=== PATIENT | female | born 1990 | race American Indian/Alaskan Native ===

== ENCOUNTER 2018-11-27 10:27 | Inpatient (IN) | payer BC, OTHER ==
[2018-11-27] MEDS ORDERED: BRETHINE IVP PRN (11:08)
[2018-11-27] MEDS ORDERED: SUBLIMAZE IV PRN (11:08)
[2018-11-27] MEDS ORDERED: ZOFRAN IV PRN (11:08)
[2018-11-27] MEDS ORDERED: MINERAL OIL PO PRN (11:08)
[2018-11-27] MEDS ORDERED: BRETHINE SUB-Q PRN (11:08)
--- NOTE | 2018-11-27 11:14 | History and Physical Report ---
History of Present Illness Date of examination: 11/27/18 Chief complaint: regular painful ctx - now 3-4cms (was 1cm in office this week) History of present illness: EDC Calculations LMP: 12/06/2018 Past History : 5 Term Births: 2 Premature Births: 0 Living Children: 2 Para: 2 Mult. Births: 0 Prev : 0 Aborta: 2 Elect. Ab: 0 Spont. Ab: 2 Ectopics: 0 # 1 Delivery date: 2013 Weeks Gestation: 11 Delivery type: SAB Comments: No D&C # 2 Delivery date: 2014 Weeks Gestation: 9 Delivery type: SAB Comments: No D&C # 3 Delivery date: 09/25/2015 Weeks Gestation: 40 labor: no Delivery type: Hours of labor: 24 Anesthesia type: epidural Delivery location: [place] Sex: Female weight: 7-12 Name: Virgie Camejo # 4 Delivery date: 05/16/2017 Weeks Gestation: 39 labor: no Delivery type: Hours of labor: 24 Anesthesia type: epidural Delivery location: [place] Sex: Female weight: 7-11 Name: Magalie Past Medical History: Negative Past Medical History Past Surgical History: Negative Past Surgical History Family History Summary: Other family member - Has No Family History of Ovarvian Cancer - Entered On: 07/08/2018 Other family member - Has No Family History of Colon Cancer - Entered On: 07/08/2018 Other family member - Has Family History of Skin Cancer - Entered On: 07/08/2018 Other family member - Has Family History of Diabetes - Entered On: 07/08/2018 Other family member - Has Family History of CVA or Stroke - Entered On: 07/08/2018 Other family member - Has Family History of Brain Cancer - Entered On: 07/08/2018 Other family member - Has Family History Coronary Heart Disease male < 55 - Entered On: 07/08/2018 Social History: Marital Status: Maried Children:2 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 of genital herpes: no Genetic History Congenital Heart Defect: Mom: no Dad: no Samantha Disease: Mom: no Dad: no Thalassemia Mom: no Dad: no Neural Tube Defect Mom: no Dad: no Down's Syndrome Mom: no Dad: yes Comments: Aunt Annie Mom: no Dad: no Sickle Cell Disease/Trait Mom: no Dad: no Hemophilia Mom: no Dad: no Muscular Dystrophy Mom: no Dad: no Cystic Fibrosis Mom: no Dad: no Arpin Chorea Mom: no Dad: no Mental Retardation Mom: no Dad: no Fragile X Mom: no Dad: no Other Genetic/Chromosomal Disorder Mom: no Dad: no Child w/other defect Mom: no Dad: no Enviromental Exposures Xray Exposure: no Medication, drug, or alcohol use since LMP: no Chemical/Other Exposure: no Current Allergies (reviewed today): * SULFA DRUGS (Critical) Past History Past Medical History: other (see HPI) Past Surgical History: other (see HPI) 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 History: other (see HPI) Family/Genetic History: other (see HPI) - Obstetrical History Expected Date of Delivery: 12/06/18 Actual Gestation: 38 Week(s) 5 Day(s) : 5 Para: 2 Hx # Term Pregnancies: 2 Number of Pregnancies: 0 Spontaneous Abortions: 2 Induced : 0 Number of Living Children: 2 Medications and Allergies Allergies Allergy/AdvReac Type Severity Reaction Status Date / Time Sulfa (Sulfonamide Allergy Hives Verified 11/27/18 10:51 Antibiotics) Review of Systems All systems: negative - Vital Signs Vital signs: Vital Signs Temp Resp 97.9 F 11/27/18 10:52 11/27/18 10:52 Temp Pulse Resp BP Pulse Ox 97.9 F 11/27/18 10:52 11/27/18 10:52 - Physical Exam Breasts: Positive: normal Cardiovascular: Regular rate Lungs: Positive: Clear to auscultation, Normal air movement Abdomen: Positive: normal appearance, soft Genitourinary (Female): Positive: normal external genitalia, normal perenium Vulva: both: normal Vagina: Positive: normal moisture Uterus: Positive: normal size, normal contour - Obstetrical FHR: category 1 Uterine Contraction Monitor Mode: External Cervical Dilatation: 3.5 Uterine Contraction Pattern: Regular Uterine Tone Measurement Phase: Contraction Uterine Contraction Intensity: Moderate Results Result Diagrams: 11/27/18 11:25 All other labs normal. Assessment and Plan 28y/o @ 38+5 weeks arrived in active labor. GBS +. Admission orders in EMR. Anticipate . - Patient Problems (1) Active labor at term Current Visit: Yes Status: Acute (2) 38 weeks gestation of Current Visit: Yes Status: Acute (3) GBS (group B Streptococcus carrier), +RV culture, currently Current Visit: Yes Status: Acute
[2018-11-27] MEDS: LACTATED RINGERS 1,000 ML IV SCH ×2 (12:00→13:43)
[2018-11-27] MEDS ORDERED: PITOCin/NS 30 UNIT/500ML 30 UNITS/500 ML BAG IV SCH (12:00)
[2018-11-27] MEDS ORDERED: PITOCin/NS 20 UNIT/1000ML DRIP 20 UNITS/1,000 ML BAG IV SCH ×2 (12:00→19:55)
[2018-11-27 12:01] LABS: Hematocrit 38.3 % (30.3-42.9); Hemoglobin 12.8 gm/dl (10.1-14.3); Mean Corpuscular HGB Conc 34 % (30-34); Mean Corpuscular Volume 89 fl (79-97); Platelet Count 160 K/mm3 (140-440); Red Cell Distribution Width 14.5 % (13.2-15.2)
[2018-11-27] MEDS ORDERED: XYLOCAINE 2% INFILTRATI ONE (12:08)
[2018-11-27] MEDS ORDERED: AMPICILLIN/NS 2 GM/100 ML 2 GM/100 ML BAG IV ONE (12:08)
--- NOTE | 2018-11-27 13:36 | Progress Note ---
Assessment and Plan Patient comfortable with epidural. SVE 6.5/90/-1, BBOW. AROM - clear fluid. Pelvis appears to be adequate for size. Anticipate . - Patient Problems (1) Active labor at term Current Visit: Yes Status: Acute (2) 38 weeks gestation of Current Visit: Yes Status: Acute (3) GBS (group B Streptococcus carrier), +RV culture, currently Current Visit: Yes Status: Acute Subjective - Subjective Date of service: 11/27/18 Principal diagnosis: IUP @ 38+5, active labor Interval history: EDC Calculations LMP: 12/06/2018 Past History : 5 Term Births: 2 Premature Births: 0 Living Children: 2 Para: 2 Mult. Births: 0 Prev : 0 Aborta: 2 Elect. Ab: 0 Spont. Ab: 2 Ectopics: 0 # 1 Delivery date: 2013 Weeks Gestation: 11 Delivery type: SAB Comments: No D&C # 2 Delivery date: 2014 Weeks Gestation: 9 Delivery type: SAB Comments: No D&C # 3 Delivery date: 09/25/2015 Weeks Gestation: 40 labor: no Delivery type: Hours of labor: 24 Anesthesia type: epidural Delivery location: [place] Sex: Female weight: 7-12 Name: Virgie Camejo # 4 Delivery date: 05/16/2017 Weeks Gestation: 39 labor: no Delivery type: Hours of labor: 24 Anesthesia type: epidural Delivery location: [place] Infant Sex: Female weight: 7-11 Name: Magalie Past Medical History: Negative Past Medical History Past Surgical History: Negative Past Surgical History Family History Summary: Other family member - Has No Family History of Ovarvian Cancer - Entered On: 07/08/2018 Other family member - Has No Family History of Colon Cancer - Entered On: 07/08/2018 Other family member - Has Family History of Skin Cancer - Entered On: 07/08/2018 Other family member - Has Family History of Diabetes - Entered On: 07/08/2018 Other family member - Has Family History of CVA or Stroke - Entered On: 07/08/2018 Other family member - Has Family History of Brain Cancer - Entered On: 07/08/2018 Other family member - Has Family History Coronary Heart Disease male < 55 - Entered On: 07/08/2018 Social History: Marital Status: Maried Children:2 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 of genital herpes: no Genetic History Congenital Heart Defect: Mom: no Dad: no Samantha Disease: Mom: no Dad: no Thalassemia Mom: no Dad: no Neural Tube Defect Mom: no Dad: no Down's Syndrome Mom: no Dad: yes Comments: Aunt Raffi-Sackimber Mom: no Dad: no Sickle Cell Disease/Trait Mom: no Dad: no Hemophilia Mom: no Dad: no Muscular Dystrophy Mom: no Dad: no Cystic Fibrosis Mom: no Dad: no Juvenal Chorea Mom: no Dad: no Mental Retardation Mom: no Dad: no Fragile X Mom: no Dad: no Other Genetic/Chromosomal Disorder Mom: no Dad: no Child w/other defect Mom: no Dad: no Enviromental Exposures Xray Exposure: no Medication, drug, or alcohol use since LMP: no Chemical/Other Exposure: no Current Allergies (reviewed today): * SULFA DRUGS (Critical) Patient reports: no new complaints (comfortable with epidural) Objective - Vital Signs Vital Signs: Vital Signs - 12hr 11/27/18 11/27/18 11/27/18 10:52 12:10 13:06 Temperature 97.9 F Pulse Rate 102 H 111 H Respiratory 16 Rate Blood Pressure 115/74 O2 Sat by Pulse 96 Oximetry 11/27/18 11/27/18 11/27/18 13:08 13:13 13:14 Temperature Pulse Rate 114 H 115 H 109 H Respiratory Rate Blood Pressure 122/70 O2 Sat by Pulse 92 94 Oximetry 11/27/18 11/27/18 11/27/18 13:21 13:23 13:29 Temperature Pulse Rate 114 H 112 H 97 H Respiratory Rate Blood Pressure 115/68 O2 Sat by Pulse 92 92 Oximetry 11/27/18 11/27/18 13:30 13:32 Temperature Pulse Rate 115 H 102 H Respiratory Rate Blood Pressure 108/72 109/70 O2 Sat by Pulse Oximetry - Exam Breasts: normal Cardiovascular: Regular rate Lungs: Clear to auscultation Abdomen: Present: normal appearance Vulva: both: normal Uterus: Present: normal FHR: category 1 Uterine Contraction Monitor Mode: External Cervical Dilatation: 6.5 (AROM - clear fluid) Cervical Effacement Percentage: 90 station: -1 Uterine Contraction Frequency (min): 3-4 Uterine Contraction Duration: 60 Uterine Contraction Pattern: Regular Uterine Tone Measurement Phase: Contraction Uterine Contraction Intensity: Strong/Firm Extremities: normal - Labs Labs: Laboratory Results - last 24 hr 11/27/18 11/27/18 11:25 11:25 WBC 9.8 RBC 4.30 Hgb 12.8 Hct 38.3 MCV 89 MCH 30 MCHC 34 RDW 14.5 Plt Count 160 Blood Type O POSITIVE Antibody Screen Negative
[2018-11-27] MEDS ORDERED: NARCAN 2 MG/2 ML IV PRN (14:57)
[2018-11-27] MEDS ORDERED: fentaNYL-BUPIV 2 MCG/ML-0.125% 200 MCG/100 ML BAG EPIDURAL SCH (15:00)
[2018-11-27] MEDS ORDERED: AMPICILLIN/NS 1 GM/50 ML 1 GM/50 ML BAG IV SCH (15:10)
[2018-11-27] MEDS ORDERED: XYLOCAINE MPF 2% ONE (15:11)
--- NOTE | 2018-11-27 17:05 | Procedure Note ---
OB Delivery Note - Delivery Date of Delivery: 11/27/18 ( female) Financial Recruiter: LILIA BORDEN Estimated blood loss: other (350) - Vaginal Delivery presentation: vertex Delivery position: OA Intrapartum events: none Delivery induction: none Delivery augmentation: rupture of membranes, pitocin Delivery monitor: external FHT, external uterine Route of delivery: Delivery placenta: spontaneous Delivery cord: 3 umbilical vessels Episiotomy: none Delivery laceration: 1st degree (hemostatic - not repaired) Anesthesia: epidural Delivery comments: female del GLENN over intact perineum, infant placed skin to skin on mother's abdomen. 3 vessel cord clamped and cut by FOC. cord blood collected. Placenta del intact and complete. Pit to IVF. Slight 1st degree lac noted hemostaic - not repaired (pt aware and agrees.) EBL 350, apgars 8/9, wt 7#12oz. Mother and infant remain LDR stable. - A at 1 minute: 8 at 5 minutes: 9 Infant Gender: Female (7#12oz)
[2018-11-27] MEDS ORDERED: LANSINOH TP PRN (19:55)
[2018-11-27] MEDS ORDERED: SODIUM CHLORIDE FLUSH SYRINGE 10 ML IV NR (19:55)
[2018-11-27] MEDS ORDERED: DERMOPLAST TP PRN (19:55)
[2018-11-27] MEDS ORDERED: DULCOLAX PR PRN (19:55)
[2018-11-27] MEDS ORDERED: TYLENOL PO PRN (19:55)
[2018-11-27] MEDS ORDERED: MILK OF MAGNESIA PO PRN (19:55)
[2018-11-27] MEDS ORDERED: TUCKS PAD TP PRN (19:55)
[2018-11-27] MEDS ORDERED: BENADRYL PO PRN (19:55)
[2018-11-27] MEDS ORDERED: PHENERGAN PO PRN (19:55)
[2018-11-28] MEDS: IBUPROFEN PO SCH ×6 (02:03→21:35)
[2018-11-28 05:06] LABS: Hematocrit 30.5 % (30.3-42.9); Hemoglobin 10.3 gm/dl (10.1-14.3)
[2018-11-28] MEDS ORDERED: BOOSTRIX IM ONE (06:00)
--- NOTE | 2018-11-28 08:25 | Progress Note ---
Assessment and Plan Patient resting comfortably in bed, reports feeling well, no complaints. Fundus firm, ML, scant bleeding. Pt reports "large softball sized clots" x2 occasions, last occurrence 2 hours ago. Pt states she is taking LD ASA for clotting disorder and she "always has clots like this after delivery". HR has been slightly elevated, currently 89. Pt reports pain is well controlled. Denies any dizziness when standing or ambulating. Reports is going well. Pt desires discharge today. Instructed patient we will monitor her bleeding and VS today and determine time of discharge later this afternoon. Pt verbalizes understanding. Continue current pathway. Subjective - Subjective Date of service: 11/28/18 Principal diagnosis: PPD 1 Patient reports: appetite normal, voiding normally, pain well controlled, ambulating normally, no dizzy ambulation [place]: doing well Objective - Vital Signs Latest vital signs: Vital Signs Temp Pulse Resp BP BP Pulse Ox 11/28/18 06:08 97.8 F 83 16 100/60 11/28/18 01:39 98.9 F 106 H 18 103/64 96 11/27/18 21:05 97.5 F L 114 H 18 117/74 96 11/27/18 18:43 97.3 F L 95 H 18 107/69 97 11/27/18 18:10 106 H 111/57 11/27/18 17:55 95 H 112/58 11/27/18 17:40 103 H 117/59 11/27/18 17:25 109 H 112/75 11/27/18 17:10 110 H 110/69 11/27/18 16:55 116 H 114/72 11/27/18 16:40 116 H 118/79 11/27/18 16:25 118 H 117/79 11/27/18 16:11 117 H 129/79 11/27/18 16:00 97.9 F 16 11/27/18 15:55 115 H 113/69 11/27/18 15:40 117 H 112/70 11/27/18 15:25 139 H 110/68 11/27/18 15:11 107 H 117/73 11/27/18 14:57 114 H 116/70 11/27/18 14:40 111 H 105/66 11/27/18 14:27 122 H 107/67 11/27/18 14:12 117 H 104/62 11/27/18 14:00 97.8 F 16 11/27/18 13:54 130 H 109/62 11/27/18 13:52 123 H 110/63 11/27/18 13:50 121 H 109/65 11/27/18 13:48 117 H 106/65 11/27/18 13:46 103 H 99/61 11/27/18 13:44 112 H 100/64 11/27/18 13:42 111 H 101/62 11/27/18 13:40 98 H 98/62 11/27/18 13:38 107 H 84/48 11/27/18 13:36 117 H 104/60 11/27/18 13:34 98 H 111/62 11/27/18 13:32 102 H 109/70 11/27/18 13:30 115 H 108/72 11/27/18 13:29 97 H 115/68 11/27/18 13:23 112 H 92 11/27/18 13:21 114 H 92 11/27/18 13:14 109 H 122/70 11/27/18 13:13 115 H 94 11/27/18 13:08 114 H 92 11/27/18 13:06 111 H 96 11/27/18 12:10 102 H 115/74 11/27/18 12:00 98.8 F 16 11/27/18 10:52 97.9 F 16 Intake and Output 11/27/18 11/28/18 11/28/18 23:59 07:59 15:59 Intake Total 300 360 Output Total 800 400 Balance -500 -40 Intake: Intake, Free Water 300 360 Output: Urine 800 400 Void 800 400 Other: Total, Output Amount 400 400 Estimated Blood Loss 350 - Exam Breasts: Present: normal Cardiovascular: Present: Regular rate, Normal S1, Normal S2 Lungs: Present: Clear to auscultation Abdomen: Present: normal appearance, soft Uterus: Present: normal, firm Extremities: Present: normal Incision: Present: normal, dry, intact - Labs Labs: Post delivery H&H 10.3/30.5
[2018-11-28] MEDS: PRENATAL VITAMIN PO SCH (10:18)
--- NOTE | 2018-11-28 16:28 | Event Note ---
Date: 11/28/18 Will start methergine at this time as pt having clots passed reported to MW by RN. will continue to closely monitor at this time. Will advise pt hold the asprin as this may be contributing to the increased bleeding as she is also taking ibuprofen.
--- NOTE | 2018-11-28 16:59 | Event Note ---
Date: 11/28/18 Upon further interview with patient regarding "clotting disorder", pt reports that she was told by her OBGYN "years ago" that she "probably" had a clotting disorder and that was possibly the reason she had prior miscarriages, and reports she was instructed that she needed to take one LD ASA daily with pregnancies. Patient never had any follow up or studies to diagnose any clotting disorder. Patient denies every having a PE or DVT in the past. Patient denies any s/s of either at this time. Patient reports last dose of LD ASA was yesterday. Instructed per Dr. Wong to discontinue ASA while inpatient. freelance displayer reports that patient has passed another blood clot vaginally, but is unable to quantify EBL. Consult with Dr. Wong, patient is to start methergine PO, as ordered, and we will continue to monitor overnight. Will reevaluate for discharge planning tomorrow.
[2018-11-28] MEDS: METHERGINE PO SCH ×2 (21:32→22:27)
[2018-11-29] MEDS: IBUPROFEN PO SCH ×3 (05:14→10:30)
[2018-11-29] MEDS: METHERGINE PO SCH ×2 (05:14→13:14)
--- NOTE | 2018-11-29 09:47 | Discharge Summary ---
Providers - Providers Date of Admission: 11/27/18 11:15 Date of discharge: 11/29/18 Attending physician: RAUDEL OMALLEY Primary care physician: RAUDEL OMALLEY Hospitalization Reason for admission: active labor, section Delivery: Episiotomy: none Laceration: 1st degree Other procedures: none complications: none Discharge diagnosis: IUP at term delivered baby: female Hospital course: Patient was admitted underwent a normal spontaneous vaginal delivery. Her course was benign. She was afebrile throughout her stay. Her day 1 hematocrit was 30.5%. Patient is breast-feeding and desires oral contraceptives for control . Condition at discharge: Good Disposition: DC-01 TO HOME OR SELFCARE - Discharge Diagnoses (1) Active labor at term Status: Acute Plan - Discharge Medications Prescriptions: Ibuprofen [Motrin] 800 mg PO Q8HR PRN #30 tablet PRN Reason: Pain , Severe (7-10) Ibuprofen [Motrin 800 MG tab] 800 mg PO Q6H PRN #30 tablet PRN Reason: Pain - Provider Discharge Summary Additional instructions: [] Smoking cessation referral if applicable(refer to patient education folder for contact #) [] Refer to [facility]'s [facility] Booklet Call your doctor immediately for: * Fever > 100.5 * Heavy vaginal bleeding ( >1 pad per hour) * Severe persistent headache * Shortness of breath * Reddened, hot, painful area to leg or breast * Drainage or odor from incision. *Patient follow up in office in 6 weeks. - Follow up plan Follow up: RAUDEL OMALLEY MD [Primary Care Provider] - 7 Days
[2018-11-29] MEDS: PRENATAL VITAMIN PO SCH (10:30)
[2018-11-29 14:54] VITALS: BP 95/57
== END 2018-11-29 14:30 | disposition home or self-care (01) | DRG 807 ==
LOC: TRG 10:27 → LD 11:15 → OB 19:16
PROVIDERS: ADMIT Obstetrics & Gynecology; ATTEND Obstetrics & Gynecology
PROC: 10E0XZZ Delivery of Products of Conception, External Approach (ICD-10-PCS; principal; 2018-11-27)
PROC: 10907ZC Drainage of Amniotic Fluid, Therapeutic from Products of Conception, Via Natural or Artificial Opening (ICD-10-PCS; 2018-11-27)
PROC: 3E0R3BZ Introduction of Anesthetic Agent into Spinal Canal, Percutaneous Approach (ICD-10-PCS; 2018-11-27)
PROC: 00HU33Z Insertion of Infusion Device into Spinal Canal, Percutaneous Approach (ICD-10-PCS; 2018-11-27)
PROC: 3E0234Z Introduction of Serum, Toxoid and Vaccine into Muscle, Percutaneous Approach (ICD-10-PCS; 2018-11-28)
DX: O99.824 Streptococcus B carrier state complicating childbirth (principal); Z37.0 Single live birth; Z3A.38 38 weeks gestation of pregnancy; O70.0 First degree perineal laceration during delivery; Z23 Encounter for immunization; Z82.3 Family history of stroke; Z82.49 Family history of ischemic heart disease and other diseases of the circulatory system; Z83.3 Family history of diabetes mellitus; Z80.8 Family history of malignant neoplasm of other organs or systems; Z88.2 Allergy status to sulfonamides
CPT/HCPCS: 36415; 59025; 85014; 85018; 85027; 86592; 86850; 86900; 86901; 96360; 96361; 96365; 96366; 96374; G0378; J0290; J2590; J3010; J7120